=== PATIENT | female | born 1975 | race American Indian/Alaskan Native ===

== ENCOUNTER → 2016-08-07 | Outpatient (CLI) | payer OTHER ==
[2016-08-07 10:07] LABS: BASOPHIL % 0.5 % (0-2); PLATELET COUNT 377 x10^3mcL (130-400); RED CELL DISTRIBUTION WIDTH 14.1 % (11.5-14.5)
[2016-08-07 10:44] LABS: ALBUMIN 3.6 g/dL (3.4-5.0); ALKALINE PHOSPHATASE 56 U/L (46-116); ALT/SGPT 22 U/L (14-59); AST/SGOT 12 U/L (15-37); BILIRUBIN DIRECT 0.07 mg/dL (0.0-0.2); BILIRUBIN TOTAL 0.2 mg/dL (0.20-1.00); CALCIUM 8.7 mg/dL (8.5-10.1); CARBON DIOXIDE 30.4 mmol/L (21-32); CHLORIDE SERUM 105 mmol/L (98-107); CHOLESTEROL 151 mg/dL (<200); CHOLESTEROL/HDL RATIO 2.6; CREATININE SERUM 0.7 mg/dL (0.6-1.0); FREE T4 0.93 ng/dL (0.76-1.46); GFR1 > 60 mL/min; GLUCOSE SERUM 90 mg/dL (74-106); HDL CHOLESTEROL 59 mg/dL (40-60); POTASSIUM SERUM 3.8 mmol/L (3.5-5.1); SODIUM SERUM 140 mmol/L (136-145); TOTAL PROTEIN, SERUM 7.7 g/dL (6.4-8.2); TRIGLYCERIDES 69 mg/dL (<150)
[2016-08-07 11:07] LABS: ERYTHROCYTE SED RATE 19 mm/hr (0-20)
[2016-08-08 09:07] LABS: RAPID PLASMA REAGIN Non Reactive (Non Reactive); RHEUMATOID ARTHRITIS FACTOR <10.0 IU/mL (0.0-13.9)
== END | disposition home or self-care (01) ==
LOC: US 09:00
PROVIDERS: Internal Medicine
PROC: B54DZZZ Ultrasonography of Bilateral Lower Extremity Veins (ICD-10-PCS; principal; 2016-08-07)
DX: Z00.00 Encounter for general adult medical examination without abnormal findings (principal); I82.409 Acute embolism and thrombosis of unspecified deep veins of unspecified lower extremity; R60.9 Edema, unspecified
CPT/HCPCS: 84439; 86431

== ENCOUNTER → 2017-01-15 | Outpatient (CLI) | payer OTHER ==
[2017-01-15 08:22] LABS: ALBUMIN 3.7 g/dL (3.4-5.0); ALKALINE PHOSPHATASE 53 U/L (46-116); ALT/SGPT 19 U/L (14-59); AST/SGOT 12 U/L (15-37); BILIRUBIN TOTAL 0.31 mg/dL (0.20-1.00); CALCIUM 8.8 mg/dL (8.5-10.1); CARBON DIOXIDE 31.3 mmol/L (21-32); CHLORIDE SERUM 101 mmol/L (98-107); CHOLESTEROL 152 mg/dL (<200); CHOLESTEROL/HDL RATIO 2.9; CREATININE SERUM 0.8 mg/dL (0.6-1.0); GFR1 > 60 mL/min; GLUCOSE SERUM 93 mg/dL (74-106); HDL CHOLESTEROL 52 mg/dL (40-60); POTASSIUM SERUM 3.7 mmol/L (3.5-5.1); SODIUM SERUM 138 mmol/L (136-145); TRIGLYCERIDES 62 mg/dL (<150)
[2017-01-15 08:24] LABS: TOTAL PROTEIN, SERUM 8.3 g/dL (6.4-8.2)
== END | disposition home or self-care (01) ==
LOC: LB 07:12
DX: F31.9 Bipolar disorder, unspecified (principal)

== ENCOUNTER → 2017-03-01 | Outpatient (CLI) | payer OTHER | END | disposition home or self-care (01) | LOC: MI 08:20 | PROC: BQ3HYZZ Magnetic Resonance Imaging (MRI) of Left Ankle using Other Contrast (ICD-10-PCS; principal; 2017-03-01) | DX: M25.472 Effusion, left ankle (principal) | CPT/HCPCS: A9577 ==

== ENCOUNTER → 2017-03-30 | Outpatient (CLI) | payer OTHER | END | disposition home or self-care (01) | LOC: RD 11:29 | DX: R60.9 Edema, unspecified (principal) ==

== ENCOUNTER → 2017-04-06 | Outpatient (CLI) | payer OTHER | END | disposition home or self-care (01) | LOC: US 08:57 | PROC: BW4GZZZ Ultrasonography of Pelvic Region (ICD-10-PCS; principal; 2017-04-06) | PROC: B54CZZZ Ultrasonography of Left Lower Extremity Veins (ICD-10-PCS; 2017-04-06) | DX: R10.2 Pelvic and perineal pain (principal); M25.572 Pain in left ankle and joints of left foot; R60.9 Edema, unspecified ==

== ENCOUNTER → 2017-07-16 | Outpatient (CLI) | payer OTHER | END | disposition home or self-care (01) | LOC: US 09:00 | PROC: BR29ZZZ Computerized Tomography (CT Scan) of Lumbar Spine (ICD-10-PCS; principal; 2017-07-16) | PROC: BW211ZZ Computerized Tomography (CT Scan) of Abdomen and Pelvis using Low Osmolar Contrast (ICD-10-PCS; 2017-07-16) | PROC: B44HZZZ Ultrasonography of Bilateral Lower Extremity Arteries (ICD-10-PCS; 2017-07-16) | DX: M54.5 Low back pain (principal); R60.0 Localized edema | CPT/HCPCS: Q9967 ==

== ENCOUNTER → 2017-10-08 | Outpatient (CLI) | payer OTHER | END | disposition home or self-care (01) | LOC: MA 09:00 | PROC: BH02ZZZ Plain Radiography of Bilateral Breasts (ICD-10-PCS; principal; 2017-10-08) | DX: Z12.31 Encounter for screening mammogram for malignant neoplasm of breast (principal); R10.2 Pelvic and perineal pain; N95.1 Menopausal and female climacteric states | CPT/HCPCS: 77067 ==

== ENCOUNTER 2018-09-08 09:02 | Inpatient (IN) | payer OTHER ==
[2018-09-01 09:51] LABS: BASOPHIL % 0.7 % (0-2); PLATELET COUNT 382 x10^3mcL (130-400); RED CELL DISTRIBUTION WIDTH 12.9 % (11.5-14.5)
[2018-09-01 10:43] LABS: CALCIUM 9.4 mg/dL (8.5-10.1); CHLORIDE SERUM 104 mmol/L (98-107); CREATININE SERUM 0.5 mg/dL (0.6-1.0); GFR1 > 60 mL/min; GLUCOSE SERUM 80 mg/dL (74-106); POTASSIUM SERUM 4.3 mmol/L (3.5-5.1); SODIUM SERUM 139 mmol/L (136-145)
[~2018-09-08] VITALS: Ht 160 cm; Wt 113.4 kg
[~2018-09-08 09:02] MED LIST: BACLOFEN10 MG PO; ESCITALOPRAM10 M1 PO; FUROSEMIDE20 MG PO; NAPROSYN500 MG PO; NORCO1 TA2 PO; VYVANSE20 MG PO; WEL75 PO; ZESTRIL5 MG PO
[2018-09-08 09:43] VITALS: BP 125/92
--- NOTE | 2018-09-08 14:23 | NUR ---
RECIEVED PT FROM OR, PT ADMIT FOR VENTRAL HERNIA REPAIR. PT IS A/O X4, BUT DROWSY. LUNG SOUND DIM SOFYA BASE, DENY ANY SOB, PT IS ON 4L/MIN O2 VIA NC. PO2 95% PT DENY ANY CHEST PAIN OR DISCOMFORT, BOWEL SOUND ABSCENT ALL 4 QUADRANTS, SURGICAL SITE AT MID ABD, COVERED WITH DRY DRESSING AND ABD BINDER. FIRST DRESSING, UNABLE TO REMOVE TO TAKE PICTURE. PEDAL PULSE PRESENT BOTH FEET, TRACE EDEMA BLE. IV AT RIGHT FA, NO LEAKING, NO INFILTRAITON. ALL ADLS ASSIST, ALL NEED MET, CALL LIGHT IN REACH, WILL CONTINUE TO MONITOR.
--- NOTE | 2018-09-08 14:30 | NUR ---
RECEIVED PT FR. GERMAIN,RESOURCE NURSE.PT DROWSY.DENIES ANY PAIN.IV SALINE LOCKED.ABDOMINAL INCISSION WITH DRESSING CDI COVERED WITH ABD'L BINDER.CALL LIGHT WITHIN REACH.INSTRUCTED TO CALL FOR ANY PAIN/DISCOMFORT.WILL CONTINUE TO MONITOR PT.
--- NOTE | 2018-09-08 16:07 | NUR ---
GAVE PT ZOFRAN 4 MG IVP ORDERED PRN FOR VOMITTING X1 ABOUT 400 ML.
--- NOTE | 2018-09-08 19:30 | NUR ---
PT IS A/O x4. ON MED SURG. DENIES ANY CHEST PAIN OR PRESSURE. PULSES ARE PRESENT. TRACE EDEMA ON BLE. LUNGS CLEAR IN ALL FEILDS. ON RA, DENIES ANY SOB. EQUAL CHEST RISE AND FALL. BOWEL SOUNDS HYPOACTIVE x4. ABD ROUND AND SEMI FIRM. FIRST DRESSSING POST OP ON MID ABD IS CLEAN AND INTACT. ABD BINDER IN PLACE. DENIES ANY PAIN AT THIS TIME. SALINE LOCKED ON RFA, INTACT AND PATENT. BED IS AT LOWEST SETTING. CALL LIGHT WITHIN REACH. WILL CONTINUE TO MONITOR.
[2018-09-08 21:09] VITALS: BP 139/92
[2018-09-09 05:21] VITALS: BP 115/60
[2018-09-09 07:23] LABS: CALCIUM 9.4 mg/dL (8.5-10.1); CARBON DIOXIDE 26.4 mmol/L (21-32); CHLORIDE SERUM 103 mmol/L (98-107); CREATININE SERUM 0.7 mg/dL (0.6-1.0); GFR1 > 60 mL/min; GLUCOSE SERUM 135 mg/dL (74-106); POTASSIUM SERUM 3.9 mmol/L (3.5-5.1); SODIUM SERUM 140 mmol/L (136-145)
--- NOTE | 2018-09-09 07:56 | NUR ---
PT AA/OX4. PT COMPLAINT OF PAIN TO ABDOMEN, ACHING, RATES PAIN 7/10, CONTINUOUS, WORSE WITH MOVEMENT. GIVEN PAIN MED, SEE MAR. NO S/S OF ACUTE DISTRESS. VS STABLE. NO N/V. NO CHEST PAIN. IV WNL TO RFA, SALINE LOCKED. PT CALM/COOPERATIVE. BED IN LOW POSITION. CALL LIGHT WITHIN REACH. DRESSING TO ABD. CDI. ABDOMINAL BINDER IN PLACE. SCDS IN PLACE. INSTRUCTED TO USE CALL LIGHT TO CALL FOR ASSISTANCE PRN. VERBALIZED UNDERSTANDING.
[2018-09-09 08:12] LABS: BASOPHIL % 0.2 % (0-2); PLATELET COUNT 339 x10^3mcL (130-400)
[2018-09-09 08:49] VITALS: BP 105/78
--- NOTE | 2018-09-09 11:39 | NUR ---
PT AMBULATORY IN ROOM, GAIT STEADY, NO S/S OF ACUTE DISTRESS. ENDORSED TO GIA NINO.
--- NOTE | 2018-09-09 11:45 | NUR ---
RECEIVED PT FROM SHIFT NURSE A/OX4 AMBULATING AROUND ROOM. C/O OF ABD PAIN. WILL MEDICATE PER EMAR. IV INTACT AND PATENT. CALL LIGHT WITHIN REACH. WILL CONTINUE TO MONITOR.
--- NOTE | 2018-09-09 11:55 | NUR ---
PT C/O OF ABD PAIN 12/20. GAVE NORCO ORDERED. WILL CONTINUE TO MONITOR.
--- NOTE | 2018-09-09 12:55 | NUR ---
PT EXPRESSED RELIEF OF ABD PAIN. WILL CONTINUE TO MONITOR.
[2018-09-09 13:10] VITALS: BP 105/78
--- NOTE | 2018-09-09 14:43 | NUR ---
PT C/O OF HEADACHE. GAVE TYLENOL ORDERED. WILL CONTINUE TO MONITOR.
--- NOTE | 2018-09-09 15:51 | NUR ---
PT ASLEEP BUT AROUSABLE. WILL CONTINUE TO MONITOR.
--- NOTE | 2018-09-09 17:02 | NUR ---
PT A/OX4 UPON DC. DENIES ANY ABD PAIN. EDUCATION PROVIDED. NEW RX GIVEN. INSTRUCTED TO FOLLOW UP WITH PCP. PT VERBALIZED UNDERSTANDING. IV REMOVED AND CATH INTACT. PERSONAL BELONGINGS TAKEN HOME. ACCOMPANIED BY RN TO LOBBY.
== END 2018-09-09 17:12 | disposition home or self-care (01) | DRG 354 ==
LOC: MU 09:02
PROVIDERS: Internal Medicine; ADMIT Surgery
PROC: 0WUF0JZ Supplement Abdominal Wall with Synthetic Substitute, Open Approach (ICD-10-PCS; principal; 2018-09-08 11:00)
DX: K43.2 Incisional hernia without obstruction or gangrene (principal); Z68.41 Body mass index [BMI] 40.0-44.9, adult; E66.01 Morbid (severe) obesity due to excess calories; Z90.49 Acquired absence of other specified parts of digestive tract; I10 Essential (primary) hypertension; K21.9 Gastro-esophageal reflux disease without esophagitis; G89.4 Chronic pain syndrome; Z90.710 Acquired absence of both cervix and uterus; Z88.0 Allergy status to penicillin; Z88.6 Allergy status to analgesic agent
CPT/HCPCS: C1781; J1170; J2250; J2405; J3010; J3490

== ENCOUNTER → 2019-01-05 | Outpatient (CLI) | payer OTHER | END | disposition home or self-care (01) | LOC: MA 15:30 | PROC: BW4GZZZ Ultrasonography of Pelvic Region (ICD-10-PCS; principal; 2019-01-05) | DX: Z01.419 Encounter for gynecological examination (general) (routine) without abnormal findings (principal) ==

== ENCOUNTER 2019-02-07 16:20 | Emergency (ER) | payer OTHER ==
[~2019-02-07] VITALS: Ht 160 cm; Wt 115.7 kg
[2019-02-07 16:44] VITALS: BP 118/64; Ht 160 cm; Wt 115.7 kg
== END 2019-02-07 20:00 | disposition home or self-care (01) ==
LOC: ED 16:20
DX: S39.012A Strain of muscle, fascia and tendon of lower back, initial encounter (principal); I50.9 Heart failure, unspecified; I10 Essential (primary) hypertension; Z98.890 Other specified postprocedural states; Z88.0 Allergy status to penicillin; Z88.1 Allergy status to other antibiotic agents; Z88.6 Allergy status to analgesic agent; X58.XXXA Exposure to other specified factors, initial encounter; Y93.89 Activity, other specified; Y92.89 Other specified places as the place of occurrence of the external cause; Y99.8 Other external cause status
CPT/HCPCS: J2270; J2550; Q0092

== ENCOUNTER → 2019-02-10 | Outpatient (CLI) | payer OTHER | END | disposition home or self-care (01) | LOC: MA 15:30 | PROC: BH02ZZZ Plain Radiography of Bilateral Breasts (ICD-10-PCS; principal; 2019-02-10) | DX: Z01.419 Encounter for gynecological examination (general) (routine) without abnormal findings (principal); Z12.31 Encounter for screening mammogram for malignant neoplasm of breast | CPT/HCPCS: 77067 ==

== ENCOUNTER → 2019-02-20 | Outpatient (CLI) | payer OTHER | END | disposition home or self-care (01) | LOC: MI 16:00 | PROC: BR39ZZZ Magnetic Resonance Imaging (MRI) of Lumbar Spine (ICD-10-PCS; principal; 2019-02-20) | DX: M54.31 Sciatica, right side (principal); M47.26 Other spondylosis with radiculopathy, lumbar region ==